=== PATIENT | female | born 1980 | race Caucasian/White ===

== ENCOUNTER 2017-01-29 08:15 | Inpatient (IN) | payer MEDICAID ==
[~2017-01-29] VITALS: Ht 160 cm; Wt 88.0 kg
[~2017-01-29 08:15] MED LIST: CLA10 PO; IPRATROPIUM BROM3 M2 INH; LAC PO; LEVAQUIN750 MG PO; MEDDP PO; PREDNISONE2.5 MG PO; PROVENTIL0.09 MG/A1 IH; PROVENTIL0.09 MG/A1 INH; PULMICORT0.5 MG/2 M IH; PULMICORT90 MCG/Ac1 IH; SING10 PO; VENTOLIN H0.09 MG/A1 INH; XOPENEX1.25 MG/3; [UNRECOGNIZED DRUG - REMARK]
[2017-01-29] MEDS ORDERED: PROAIR HFA8.5 GM IH (08:31)
[2017-01-29] MEDS ORDERED: LEVOFLOXACIN500 M1 PO (08:32)
[2017-01-29] MEDS ORDERED: BD LACTINEX1.4 MG PO (08:33)
[2017-01-29 08:36] LABS: BASOPHIL % 0.6 % (0-2); PLATELET COUNT 247 x10^3mcL (130-400); RED CELL DISTRIBUTION WIDTH 13.1 % (11.5-14.5)
[2017-01-29 09:23] LABS: CALCIUM 8.4 mg/dL (8.5-10.1); CARBON DIOXIDE 25.5 mmol/L (21-32); CHLORIDE SERUM 103 mmol/L (98-107); CREATININE SERUM 0.7 mg/dL (0.6-1.0); GFR1 > 60 mL/min; GLUCOSE SERUM 150 mg/dL (74-106); POTASSIUM SERUM 3.4 mmol/L (3.5-5.1); SODIUM SERUM 137 mmol/L (136-145)
[2017-01-29 09:27] LABS: ALBUMIN 3.4 g/dL (3.4-5.0); ALKALINE PHOSPHATASE 65 U/L (46-116); ALT/SGPT 17 U/L (14-59); AST/SGOT 11 U/L (15-37); BILIRUBIN TOTAL 0.4 mg/dL (0.20-1.00); TOTAL PROTEIN, SERUM 7.2 g/dL (6.4-8.2)
[2017-01-29 10:59] VITALS: BP 129/45
[2017-01-29 12:08] LABS: T3 TOTAL 1.73 ng/mL
[2017-01-29 13:02] LABS: CHOLESTEROL/HDL RATIO 4.1; MAGNESIUM 1.9 mg/dL (1.8-2.4); PHOSPHOROUS 3.4 mg/dL (2.5-4.9)
[2017-01-29 13:10] LABS: FREE T4 1.15 ng/dL (0.76-1.46); FREE THYROXINE INDEX 3.2 ug/dL (1.4-4.5)
[2017-01-29 14:05] VITALS: BP 132/78
[2017-01-29 17:12] VITALS: BP 123/80
[2017-01-29 20:26] VITALS: BP 140/80
[2017-01-30 06:11] VITALS: BP 104/53
[2017-01-30 06:13] LABS: PLATELET COUNT 234 x10^3mcL (130-400); RED CELL DISTRIBUTION WIDTH 13.7 % (11.5-14.5)
[2017-01-30 06:41] LABS: CALCIUM 8.6 mg/dL (8.5-10.1); CARBON DIOXIDE 22.3 mmol/L (21-32); CHLORIDE SERUM 106 mmol/L (98-107); CREATININE SERUM 0.6 mg/dL (0.6-1.0); GFR1 > 60 mL/min; GLUCOSE SERUM 173 mg/dL (74-106); POTASSIUM SERUM 4.1 mmol/L (3.5-5.1); SODIUM SERUM 140 mmol/L (136-145)
[2017-01-30 06:44] LABS: BASOPHIL % 0 % (0-2)
[2017-01-30 09:33] VITALS: BP 116/61
[2017-01-30 14:20] VITALS: BP 119/81
[2017-01-30 15:40] LABS: microscopic required? YES; urine erythrocyte TRACE (NEGATIVE)
[2017-01-30 16:01] LABS: AMPHETAMINE QUAL UR NONE DETECTED (NEG <=1000)
[2017-01-30 18:10] VITALS: BP 123/72
[2017-01-30 21:22] VITALS: BP 124/69
[2017-01-31 05:25] VITALS: BP 110/69
[2017-01-31 06:13] LABS: PLATELET COUNT 246 x10^3mcL (130-400); RED CELL DISTRIBUTION WIDTH 13.7 % (11.5-14.5)
[2017-01-31 06:27] LABS: CALCIUM 8.8 mg/dL (8.5-10.1); CARBON DIOXIDE 23.9 mmol/L (21-32); CHLORIDE SERUM 106 mmol/L (98-107); CREATININE SERUM 0.6 mg/dL (0.6-1.0); GFR1 > 60 mL/min; GLUCOSE SERUM 141 mg/dL (74-106); POTASSIUM SERUM 4.2 mmol/L (3.5-5.1); SODIUM SERUM 141 mmol/L (136-145)
[2017-01-31 07:20] LABS: BASOPHIL % 0 % (0-2)
[2017-01-31 09:35] VITALS: BP 110/69
[2017-01-31 10:03] VITALS: BP 126/71
[2017-01-31] MEDS ORDERED: LEVAQUIN750 MG PO (11:10)
[2017-01-31] MEDS ORDERED: IPRATROPIUM BROM3 M2 HHN (11:11)
[2017-01-31] MEDS ORDERED: PULMICORT0.5 MG/2 M IH (11:12)
[2017-01-31] MEDS ORDERED: MONTELUKAST SOD10 M1 PO (11:12)
[2017-01-31] MEDS ORDERED: PREDNISONE5 MG PO (11:16)
== END 2017-01-31 14:05 | disposition home or self-care (01) | DRG 141 ==
LOC: ED 08:15 → DU 09:27
PROVIDERS: Emergency Medicine; ADMIT Family Medicine
DX: J45.901 Unspecified asthma with (acute) exacerbation (principal); N17.0 Acute kidney failure with tubular necrosis; E87.6 Hypokalemia; I10 Essential (primary) hypertension; I08.1 Rheumatic disorders of both mitral and tricuspid valves; E78.5 Hyperlipidemia, unspecified; Z68.34 Body mass index [BMI] 34.0-34.9, adult
CPT/HCPCS: 36600; 83880; 84439; J2060; J2920; J2930; J3105; J3475; J7030; J7613; J7620; J7626; J7644; Q0092

== ENCOUNTER 2017-06-25 12:46 | Emergency (ER) | payer MEDICAID ==
[~2017-06-25] VITALS: Ht 165.1 cm; Wt 72.6 kg
[~2017-06-25 12:46] MED LIST changes: +BD LACTINEX1.4 MG PO; +IPRATROPIUM BROM3 M2 HHN; +LEVOFLOXACIN500 M1 PO; +MONTELUKAST SOD10 M1 PO; +PREDNISONE5 MG PO; +PROAIR HFA8.5 GM IH
[2017-06-25 15:48] VITALS: BP 107/62
== END 2017-06-25 15:48 | disposition home or self-care (01) ==
LOC: ED 12:46
DX: J45.901 Unspecified asthma with (acute) exacerbation (principal); Z79.51 Long term (current) use of inhaled steroids
CPT/HCPCS: J2930; J7613; J7644; Q0092

== ENCOUNTER 2018-07-08 13:48 | Emergency (ER) | payer MEDICAID ==
[~2018-07-08] VITALS: Ht 157.5 cm; Wt 87.5 kg
[2018-07-08 13:56] VITALS: Ht 157.5 cm; Wt 87.5 kg
[2018-07-08 17:47] VITALS: BP 121/68
== END 2018-07-08 17:30 | disposition home or self-care (01) ==
LOC: ED 13:48
DX: G43.909 Migraine, unspecified, not intractable, without status migrainosus (principal); R11.0 Nausea
CPT/HCPCS: J2765; J8597

== ENCOUNTER 2019-09-05 18:41 | Emergency (ER) | payer MEDICAID ==
[~2019-09-05] VITALS: Ht 154.9 cm; Wt 80.3 kg
[2019-09-05 18:43] VITALS: Ht 154.9 cm; Wt 80.3 kg
[2019-09-05 21:43] VITALS: BP 140/94
== END 2019-09-05 21:43 | disposition home or self-care (01) ==
LOC: ED 18:41
DX: J45.901 Unspecified asthma with (acute) exacerbation (principal)
CPT/HCPCS: J0171; J7512; J7613; J7644